=== PATIENT | female | born 1980 | race Caucasian/White ===

== ENCOUNTER 2018-11-15 19:28 | Emergency (ER) | payer MEDICAID ==
[~2018-11-15] VITALS: Ht 162.6 cm; Wt 63.0 kg
[2018-11-15] MEDS ORDERED: ONDANSETRON HCL 4MG/2ML INJ IV STA (20:56)
[2018-11-15] MEDS ORDERED: VISCOUS LIDOCAINE 2% 15 ML UDC PO STA (20:56)
[2018-11-15] MEDS ORDERED: MAGNESIUM/ALUMINUM HYDROXIDE/SIMETHICONE 30ML UDC PO STA (20:56)
[2018-11-15] MEDS ORDERED: FAMOTIDINE 20MG/2ML VIAL IV STA (20:56)
[2018-11-15 21:24] LABS: BASOPHILS % 0.4 % (0.0-2.0); EOSINOPHILS % 0.7 % (0.0-5.0); HEMATOCRIT. 35.4 % (36.0-48.0); HEMOGLOBIN. 11.7 g/dL (12.0-16.0); LYMPHOCYTES % 18.9 % (20.0-50.0); MEAN CORPUSCULAR HEMOGLOBIN 28.1 pg (28.0-32.0); MEAN CORPUSCULAR VOLUME 84.9 fL (81.0-99.0); MONOCYTES % 7.4 % (2.0-8.0); NEUTROPHILS % 72.6 % (40.0-76.0); PLATELET 344 x1000/uL (130-400); RED BLOOD CELL COUNT 4.17 mill/uL (4.2-5.4); RED CELL DISTRIBUTION WIDTH 15.2 % (11.6-14.6)
[2018-11-15 21:26] LABS: CHLORIDE 109 mEq/L (98-107)
[2018-11-15] MEDS ORDERED: ONDANSETRON HCL 4MG/2ML INJ IV ONE (22:45)
[2018-11-15] MEDS ORDERED: MORPHINE SULFATE 4 MG/ML CPJ (NOT FOR IM USE) IV ONE (22:45)
[2018-11-15] MEDS ORDERED: IOHEXOL-300 100 ML BOTTLE ONE (23:14)
[2018-11-16 00:29] VITALS: BP 98/59
== END 2018-11-16 00:31 | disposition home or self-care (01) ==
LOC: ER 19:28
DX: K52.9 Noninfective gastroenteritis and colitis, unspecified (principal); D72.829 Elevated white blood cell count, unspecified; D64.9 Anemia, unspecified; R10.13 Epigastric pain; R11.2 Nausea with vomiting, unspecified; R00.0 Tachycardia, unspecified; Z98.890 Other specified postprocedural states; Z98.51 Tubal ligation status
CPT/HCPCS: 36415; 71045; 74177; 80053; 81025; 83690; 85025; 96374; 96375; 99284; J2270; J2405; J3490; Q9967; Z7610

== ENCOUNTER 2020-02-16 13:51 | Emergency (ER) | payer MEDICAID ==
[~2020-02-16] VITALS: Ht 157.5 cm; Wt 68.0 kg
[2020-02-16] MEDS ORDERED: OLANZAPINE 5MG TABLET ODT PO ONE (15:15)
[2020-02-16 15:47] LABS: CLARITY URINE CLEAR (CLEAR); COLOR URINE ORANGE (YELLOW); KETONES URINE NEGATIVE (NEGATIVE); LEUKOCYTE ESTERASE URINE 1+ (NEGATIVE); NITRITE URINE NEGATIVE (NEGATIVE); OCCULT BLOOD URINE 3+ (NEGATIVE); PROTEIN URINE NEGATIVE (NEGATIVE); SPECIFIC GRAVITY URINE 1.006 (1.005-1.030); UROBILINOGEN URINE 0.2 E.U./dL (0.2-1.0)
[2020-02-16 15:52] LABS: BASOPHILS % 0.9 % (0.0-2.0); EOSINOPHILS % 1.8 % (0.0-5.0); HEMOGLOBIN. 12.6 g/dL (12.0-16.0); LYMPHOCYTES % 27.6 % (20.0-50.0); MEAN CORPUSCULAR HEMOGLOBIN 28.3 pg (28.0-32.0); MEAN PLATELET VOLUME 7.4 fl (7.4-10.4); MONOCYTES % 8.2 % (2.0-8.0); NEUTROPHILS % 61.5 % (40.0-76.0); PLATELET 346 x1000/uL (130-400); RED BLOOD CELL COUNT 4.48 mill/uL (4.2-5.4); RED CELL DISTRIBUTION WIDTH 15.8 % (11.6-14.6)
[2020-02-16 15:58] LABS: CHLORIDE 107 mEq/L (98-107)
[2020-02-16 16:02] LABS: ETHANOL BLOOD < 10 mg/dL
[2020-02-16 16:27] LABS: *AMPHETAMINES SCREEN URINE NEGATIVE (NEGATIVE); *BARBITURATES SCREEN URINE NEGATIVE (NEGATIVE); *BENZODIAZEPINES SCREEN URINE NEGATIVE (NEGATIVE); *COCAINE SCREEN URINE NEGATIVE (NEGATIVE); METHADONE URINE SCREEN NEGATIVE (NEGATIVE)
[2020-02-16 16:28] LABS: CANNABINOID URINE SCREEN NEGATIVE (NEGATIVE); OPIATES URINE SCREEN NEGATIVE (NEGATIVE); PHENCYCLIDINE URINE SCREEN NEGATIVE (NEGATIVE)
[2020-02-16] MEDS ORDERED: NICOTINE 21MG PATCH TD ONE (17:00)
[2020-02-16] MEDS ORDERED: HYDROXYZINE 25MG TABLET PO PRN (18:15)
[2020-02-16] MEDS ORDERED: QUETIAPINE FUMARATE 50MG TABLET PO PRN (18:15)
[2020-02-16] MEDS ORDERED: TRAZODONE HCL 50MG TABLET PO SCH (21:00)
[2020-02-16] MEDS ORDERED: ARIPIPRAZOLE 5MG TABLET PO ONE (21:00)
[2020-02-17] MEDS ORDERED: VENLAFAXINE HCL 37.5MG SR CAPSULE 24HR PO SCH (09:00)
[2020-02-17] MEDS ORDERED: NICOTINE 7MG PATCH TD SCH (09:00)
[2020-02-17 17:00] VITALS: BP 111/71
== END 2020-02-17 17:23 | disposition home or self-care (01) ==
LOC: ER 13:51
DX: R45.851 Suicidal ideations (principal); R44.0 Auditory hallucinations; Z98.51 Tubal ligation status; Z20.828 Contact with and (suspected) exposure to other viral communicable diseases
CPT/HCPCS: 36415; 80053; 80305; 80320; 81003; 85025; 87635; 99285; C9803; G0480

== ENCOUNTER 2020-11-17 22:07 | Emergency (ER) | payer MEDICAID ==
[~2020-11-17] VITALS: Ht 160 cm; Wt 64.0 kg
[2020-11-18] LABS: CLARITY URINE CLEAR (CLEAR); COLOR URINE YELLOW (YELLOW); KETONES URINE TRACE (NEGATIVE); LEUKOCYTE ESTERASE URINE NEGATIVE (NEGATIVE); NITRITE URINE NEGATIVE (NEGATIVE); OCCULT BLOOD URINE 2+ (NEGATIVE); PH URINE 5.5 (4.5-8.0); PROTEIN URINE NEGATIVE (NEGATIVE); SPECIFIC GRAVITY URINE 1.022 (1.005-1.030)
[2020-11-18 00:03] LABS: CHLORIDE 110 mEq/L (98-107)
[2020-11-18 00:07] LABS: ETHANOL BLOOD < 10 mg/dL
[2020-11-18 00:17] LABS: *AMPHETAMINES SCREEN URINE NEGATIVE (NEGATIVE); *BARBITURATES SCREEN URINE NEGATIVE (NEGATIVE)
[2020-11-18 00:18] LABS: CANNABINOID URINE SCREEN NEGATIVE (NEGATIVE); METHADONE URINE SCREEN NEGATIVE (NEGATIVE); OPIATES URINE SCREEN NEGATIVE (NEGATIVE)
[2020-11-18 00:19] LABS: PHENCYCLIDINE URINE SCREEN NEGATIVE (NEGATIVE)
[2020-11-18 00:25] LABS: *COCAINE SCREEN URINE NEGATIVE (NEGATIVE)
[2020-11-18 00:36] LABS: BASOPHILS % 0.5 % (0.0-2.0); EOSINOPHILS % 0.4 % (0.0-5.0); HEMATOCRIT. 35.8 % (36.0-48.0); MEAN CORPUSCULAR HEMOGLOBIN 28.1 pg (28.0-32.0); MEAN CORPUSCULAR VOLUME 83.7 fL (81.0-99.0); MEAN PLATELET VOLUME 7.7 fl (7.4-10.4); MONOCYTES % 7.1 % (2.0-8.0); PLATELET 367 x1000/uL (130-400); RED BLOOD CELL COUNT 4.28 mill/uL (4.2-5.4)
[2020-11-18 00:46] LABS: *BENZODIAZEPINES SCREEN URINE NEGATIVE (NEGATIVE)
[2020-11-18] MEDS ORDERED: TRAZ-251 MT (09:23)
[2020-11-18] MEDS ORDERED: ZIPR40CA2 MT (09:23)
[2020-11-18] MEDS ORDERED: ZIPRASIDONE HCL 40MG CAPSULE PO ONE (09:30)
[2020-11-18 10:10] VITALS: BP 128/88
== END 2020-11-18 10:25 | disposition home or self-care (01) ==
LOC: ER 22:07
DX: R44.0 Auditory hallucinations (principal); R45.851 Suicidal ideations; E03.9 Hypothyroidism, unspecified; Z86.59 Personal history of other mental and behavioral disorders; Z98.51 Tubal ligation status; Z98.890 Other specified postprocedural states
CPT/HCPCS: 36415; 80053; 80305; 80307; 80320; 80329; 81003; 84443; 85025; 99285; G0480

== ENCOUNTER 2022-04-01 10:23 | Emergency (ER) | payer MEDICAID, OTHER ==
[~2022-04-01] VITALS: Ht 152.4 cm; Wt 62.8 kg
[~2022-04-01 10:23] MED LIST: TRAZ-251 MT; ZIPR40CA2 MT
[2022-04-01 11:09] VITALS: BP 98/57
[2022-04-01] MEDS ORDERED: ACETAMINOPHEN 325MG TABLET PO ONE (12:00)
[2022-04-01] MEDS ORDERED: CETIRIZINE 10MG TABLET PO SCH (12:00)
[2022-04-01] MEDS ORDERED: CETI-106 MT (12:24)
[2022-04-01] MEDS ORDERED: TRIA15CR61 TP (12:24)
== END 2022-04-01 12:58 | disposition home or self-care (01) ==
LOC: ER 10:23
DX: L25.9 Unspecified contact dermatitis, unspecified cause (principal); R21 Rash and other nonspecific skin eruption; M79.18 Myalgia, other site; F20.9 Schizophrenia, unspecified
CPT/HCPCS: 99283